=== PATIENT | female | born 1970 | race Hispanic/Latino ===

== ENCOUNTER 2020-12-09 10:57 | Inpatient (IN) | payer SELFPAY ==
[2020-12-09] MEDS ORDERED: Ondansetron PF 4 MG/2 ML Vial ONE ×2 (12:19→14:56)
[2020-12-09] MEDS ORDERED: Morphine 4 MG/ML VIAL ONE (12:19)
[2020-12-09 12:21] LABS: SARS-CoV-2 NAA Rapid Test Not Detected (NotDetected)
[2020-12-09] MEDS ORDERED: Lidocaine 1% w/Epinephrine 1:100K 20 ML VIAL ONE (13:42)
[2020-12-09] MEDS ORDERED: Bupivacaine 0.25% HCL 30 ML VIAL ONE (13:42)
[2020-12-09] MEDS ORDERED: Fentanyl 100 MCG/2 ML VIAL ONE (14:32)
[2020-12-09] MEDS ORDERED: Piperacillin/Tazobactam 4.5 GM in Sodium Chloride 0.9% 100 ML IVPB SCH (14:45)
[2020-12-09] MEDS ORDERED: PROPOFOL 200 MG/20 ML VIAL ONE (14:56)
[2020-12-09] MEDS ORDERED: PHENYLEPHRINE-NS 100 MCG/ML 10 ML SYRINGE ONE (14:56)
[2020-12-09] MEDS ORDERED: Succinylcholine 200 MG/10 ml SYRINGE FS ONE (14:56)
[2020-12-09] MEDS ORDERED: Dexamethasone 20 MG/5 ML VIAL ONE (14:56)
[2020-12-09] MEDS ORDERED: Lidocaine 1% PF 5 ML VIAL ONE (14:56)
[2020-12-09] MEDS ORDERED: Rocuronium Bromide 10 MG/ML (10ML VIAL) ONE (14:56)
[2020-12-09] MEDS ORDERED: SUGAMMADEX SODIUM 200 MG/2 ML VIAL ONE (16:14)
[2020-12-09] MEDS ORDERED: hydrALAZINE 20 MG/ML VIAL SLOW IVP PRN (17:03)
[2020-12-09] MEDS ORDERED: Promethazine HCl 25 MG/ML VIAL IM PRN (17:03)
[2020-12-09] MEDS ORDERED: Ondansetron PF 4 MG/2 ML Vial IVP PRN (17:03)
[2020-12-09] MEDS ORDERED: Morphine 4 MG/ML VIAL SLOW IVP PRN (17:07)
[2020-12-09] MEDS: D5 1/2 NS w/20 mEq KCL 1,000 ML IV SCH (17:54)
[2020-12-09] MEDS: Ketorolac Tromethamine 30 MG/ML VIAL IVP SCH (17:54)
[2020-12-09] MEDS ORDERED: Piperacillin/Tazobactam 3.375 GM in Sodium Chloride 0.9% 100 ML IVPB SCH (18:00)
[2020-12-09 18:16] VITALS: BMI 32.2
[2020-12-09] MEDS: Morphine 4 MG/ML VIAL SLOW IVP PRN (20:10)
[2020-12-09] MEDS: Piperacillin/Tazobactam 3.375 GM in Sodium Chloride 0.9% 100 ML IVPB SCH (20:11)
[2020-12-09] MEDS: Famotidine/PF 20 mg/2ml Vial SLOW IVP SCH (20:11)
[2020-12-09] MEDS: Famotidine 20 MG TAB PO SCH (20:57)
[2020-12-10] MEDS: D5 1/2 NS w/20 mEq KCL 1,000 ML IV SCH ×4 (00:26→21:44)
[2020-12-10] MEDS: Ketorolac Tromethamine 30 MG/ML VIAL IVP SCH ×5 (00:26→23:20)
[2020-12-10] MEDS: Piperacillin/Tazobactam 3.375 GM in Sodium Chloride 0.9% 100 ML IVPB SCH ×4 (03:00→21:37)
[2020-12-10 05:03] LABS: #Monocytes 0.9 thou/uL (0.11-0.59); #Neutrophils 9.2 thou/uL (1.40-6.50); %Eosinophils 0.2 % (0.0-10.0); %Lymphocytes 9.1 % (21.0-51.0); %Monocytes 7.8 % (0.0-10.0); Mean Corpuscular HGB CONC 32.5 g/dL (32.0-36.0); Mean Corpuscular Hemoglobin 30.6 pg (27.0-31.0); Mean Corpuscular Volume 94.3 fL (78.0-98.0); Mean Platelet Volume 8.2 fL (7.4-10.4); Platelet Count 206 thou/uL (130-400); RBC Distribution Width 11.4 % (11.5-14.5); Red Blood Cell (RBC) Count 3.59 mill/uL (4.20-5.40); White Blood Cell (WBC) Count 11.1 thou/uL (4.8-10.8)
[2020-12-10 05:21] LABS: Anion Gap 11 mmol/L (10-20); BUN (Urea Nitrogen) 4 mg/dL (9.8-20.1); Calc. Creatinine Clearance 120 mL/min (70-130); Calcium 7.8 mg/dL (7.8-10.44); Carbon Dioxide 21 mmol/L (22-29); Chloride 110 mmol/L (98-107); Glucose 188 mg/dL (70-105); Potassium 4.4 mmol/L (3.5-5.1); Sodium 138 mmol/L (136-145)
[2020-12-10] MEDS: Famotidine/PF 20 mg/2ml Vial SLOW IVP SCH ×2 (08:03→21:37)
[2020-12-10] MEDS: Famotidine 20 MG TAB PO SCH ×2 (08:03→22:40)
[2020-12-10] MEDS: Enoxaparin Sodium 40 MG/0.4 ML SYRINGE SC SCH (08:03)
[2020-12-10] MEDS: Morphine 4 MG/ML VIAL SLOW IVP PRN (09:50)
[2020-12-10] MEDS ORDERED: Acetaminophen 325 MG TAB PO PRN (15:10)
[2020-12-10] MEDS ORDERED: HYDROcodone/Acetaminophen 7.5/325 mg Tablet PO PRN ×2 (15:10)
[2020-12-11] MEDS: Piperacillin/Tazobactam 3.375 GM in Sodium Chloride 0.9% 100 ML IVPB SCH ×2 (03:58→08:21)
[2020-12-11 05:48] LABS: #Lymphocytes 1.7 thou/uL (1.20-3.40); #Monocytes 0.7 thou/uL (0.11-0.59); #Neutrophils 5.1 thou/uL (1.40-6.50); %Eosinophils 0.4 % (0.0-10.0); %Monocytes 9.5 % (0.0-10.0); %Neutrophils 67.2 % (42.0-75.0); Hemoglobin 10.6 g/dL (12.0-16.0); Mean Corpuscular HGB CONC 32.8 g/dL (32.0-36.0); Mean Corpuscular Hemoglobin 31.4 pg (27.0-31.0); Mean Corpuscular Volume 95.5 fL (78.0-98.0); Mean Platelet Volume 8.7 fL (7.4-10.4); Platelet Count 204 thou/uL (130-400); RBC Distribution Width 11.6 % (11.5-14.5); Red Blood Cell (RBC) Count 3.36 mill/uL (4.20-5.40); White Blood Cell (WBC) Count 7.6 thou/uL (4.8-10.8)
[2020-12-11] MEDS: Ketorolac Tromethamine 30 MG/ML VIAL IVP SCH ×2 (06:28→11:06)
[2020-12-11] MEDS: Famotidine/PF 20 mg/2ml Vial SLOW IVP SCH (08:18)
[2020-12-11] MEDS: Enoxaparin Sodium 40 MG/0.4 ML SYRINGE SC SCH (08:21)
[2020-12-11] MEDS: Famotidine 20 MG TAB PO SCH (08:21)
[2020-12-11] MEDS ORDERED: D5 1/2 NS w/20 mEq KCL 1,000 ML IV SCH (09:15)
[2020-12-11] MEDS ORDERED: metroNIDAZOLE 500 MG TAB PO SCH ×2 (09:30→15:00)
[2020-12-11] MEDS ORDERED: Ciprofloxacin 500 MG TAB PO SCH ×2 (09:30→20:00)
[2020-12-11 11:22] VITALS: BP 116/71; TEMP 97.6
[2020-12-11] MEDS: D5 1/2 NS w/20 mEq KCL 1,000 ML IV SCH (11:33)
== END 2020-12-11 14:37 | disposition home or self-care (01) | DRG 358 ==
LOC: ERS 10:57 → SDC 14:32 → SURG A 14:33 → 2NO 17:51 → SURG A 18:03
PROVIDERS: ADMIT Specialist; ATTEND Specialist
PROC: 0W9J4ZZ Drainage of Pelvic Cavity, Percutaneous Endoscopic Approach (ICD-10-PCS; principal; 2020-12-09)
DX: K57.20 Diverticulitis of large intestine with perforation and abscess without bleeding (principal); Z90.49 Acquired absence of other specified parts of digestive tract
CPT/HCPCS: 0240U; 36415; 80048; 85025; 96374; 96375; J1100; J1650; J1885; J2270; J2405; J2543; J2704; J3010; J3480; J3490; S0020; S0028